=== PATIENT | female | born 1955 | race Caucasian/White ===

== ENCOUNTER 2020-02-07 11:12 | Outpatient (REF) | payer OTHER, SELFPAY ==
[2020-02-07 11:34] LABS: COVID-19 Test Negative (Negative); IDNOW Serial# 55D5AD1C
== END 2020-02-07 11:13 | disposition home or self-care (01) ==
LOC: HO.EMPCOV 11:12
PROVIDERS: PCP Internal Medicine; Visit Provider Internal Medicine
DX: Z20.828 Contact with and (suspected) exposure to other viral communicable diseases (principal)
CPT/HCPCS: 87635; C9803

== ENCOUNTER 2020-07-04 06:07 | Outpatient (REF) | payer OTHER, SELFPAY ==
[2020-07-04 07:26] LABS: MANUAL DIFF FLAG NO
[2020-07-04 07:44] LABS: Basophils Percent Auto 0.7 % (0-2); Eosinophils Absolute Auto 0.2 X10*3/uL (0.0-0.4); Eosinophils Percent Auto 4.1 % (0-4); Hematocrit 41.3 % (37-47); Hemoglobin 13.4 g/dl (12.0-16.0); Imm Gran Abs Auto 0.01 X10*3/uL (0.00-0.03); Imm Gran Pct Auto 0.2 % (0.0-0.4); Lymphocytes Absolute Auto 1.6 X10*3/uL (1.2-4.9); Lymphocytes Percent Auto 37.3 % (20-40); Mean Corpuscular HGB Conc 32.4 g/dl (31.0-35.0); Mean Corpuscular Hemoglobin 31.1 pg (27.0-33.0); Mean Corpuscular Volume 95.8 fL (80-98); Monocytes Absolute Auto 0.4 X10*3/uL (0.1-1.2); Monocytes Percent Auto 9.2 % (2-11); Neutrophils Absolute Auto 2.1 X10*3/uL (2.0-8.3); Neutrophils Percent Auto 48.5 % (45-73); Platelet Count 214 X10*3/uL (160-400); Red Blood Count 4.31 X10*6/uL (4.20-5.50); Red Cell Distribution Width 12.1 % (11.0-16.0); White Blood Count 4.4 X10*3/uL (4.8-10.8)
[2020-07-04 07:53] LABS: Alanine Aminotransferase 18 U/L (0-31); Albumin Level 4.4 g/dL (3.5-5.0); Alkaline Phosphatase 73 U/L (39-117); Anion Gap 14 (12-20); Aspartate Amino Transferase 28 U/L (5-31); Bilirubin Total 0.8 mg/dL (0.0-1.0); Blood Urea Nitrogen 17 mg/dL (9-16); Calcium 9.1 mg/dL (8.4-10.2); Carbon Dioxide 28 mmol/L (22-29); Chloride 104 mmol/L (96-108); Cholesterol 203 mg/dL; Estimated Glomerular Filt Rate > 60; Glucose Fasting 85 mg/dL (60-99); HDL Cholesterol 84 mg/dL; LDL Cholesterol Calculated 108 mg/dl; Potassium 4.6 mmol/L (3.3-5.1); Sodium 141 mmol/L (135-145); Total Protein 7.1 g/dL (6.5-8.0); Triglycerides 59 mg/dL
[2020-07-04 08:15] LABS: Free T4 (Free Thyroxine) 1.34 ng/dL (0.71-1.85); Thyroid Stimulating Hormone 0.53 uIU/mL (0.32-4.0)
== END 2020-07-04 06:08 | disposition home or self-care (01) ==
LOC: HO.LAB 06:07
PROVIDERS: PCP Internal Medicine; Visit Provider Internal Medicine
DX: Z00.00 Encounter for general adult medical examination without abnormal findings (principal); E03.9 Hypothyroidism, unspecified
CPT/HCPCS: 36415; 80053; 80061; 84439; 84443; 85025

== ENCOUNTER 2020-10-18 14:13 | Outpatient (REF) | payer OTHER, SELFPAY ==
--- NOTE | ~2020-10-18 | MM_ITS ---
EXAMINATION: MM SCREENING DIGITAL BREAST TOMOSYNTHESIS, BILATERAL CLINICAL INFORMATION: Screening. Asymptomatic. The lifetime risk of breast cancer based on the Tyrer-Cuzick Model is 25%. COMPARISON: Mammography: 08/30/2019, 06/26/2018, 06/13/2017, 05/17/2016 TECHNIQUE: Digital breast tomosynthesis is performed in both the craniocaudal and mediolateral oblique views along with computer-aided detection (CAD). Synthesized 2D images are generated from the tomosynthesis. FINDINGS: The breasts are heterogeneously dense, which may obscure small masses (ACR BI-RADS breast composition Category c). Parenchymal pattern is similar to prior exams. There is no developing density or interval mass or architectural abnormality. The axilla and skin contours are unremarkable. Again, there are tightly grouped calcifications posterior inferior medial right breast, possibly related to degenerating fibroadenoma. There are some other scattered calcifications are stable including posterior upper right breast as well as some coarse and fine vascular calcifications on each side. There are no significant changes from prior studies. MM/MM tomosynthesis screening BI IMPRESSION: No significant changes from prior studies. ASSESSMENT: BI-RADS 2: Benign RECOMMENDATION: 1. Routine annual mammography screening. 2. The lifetime risk of breast cancer based on the Tyrer-Cuzick Model is 25%. Additional annual adjunct screening with breast MRI may be of benefit in women with a risk score of 20% or greater. This patient's information was entered into a reminder system with a target due date for their next mammogram.
== END 2020-10-18 14:14 | disposition home or self-care (01) ==
LOC: HO.MAMMO 14:13
PROVIDERS: PCP Internal Medicine; Visit Provider Nurse Practitioner Adult Health
DX: Z12.31 Encounter for screening mammogram for malignant neoplasm of breast (principal)
CPT/HCPCS: 77063; 77067

== ENCOUNTER 2021-03-05 07:18 | Day surgery (SDC) | payer OTHER, SELFPAY ==
[2021-02-27 10:44] VITALS: BMI 19.0
--- NOTE | 2021-03-02 09:53 | HO.ANESPROP2 ---
Documented by User: Radha Burton NP 03/02/21 09:53 HPI - Anesthesia Eval Consult details Narrative: 65yo F for Colonoscopy [facility] Past Medical History Medical History (Updated 02/27/21 @ 10:44 by Laurie Cordova RN) COVID-19 vaccine series completed Family history of anesthesia complication Hx of thyroid cancer HX: benign breast biopsy Hypothyroid Post-operative nausea and vomiting Surgical History Surgical History (Updated 02/27/21 @ 10:44 by Laurie Cordova RN) H/O colonoscopy Hx of appendectomy Hx of right inguinal hernia repair Hx of thyroidectomy Social History Social History Are you a primary long term care phlebotomist to a significant other at home: No Do you presently have visiting nurse or other home services: No Patient Tobacco Use Status: Never used Tobacco Use of substances other than those prescribed or required for medical reasons: No Have you been hit, kicked, punched, or otherwise hurt by someone within the past year? If so, by whom?: No Are you DNR?: No Advance Directives: No Advance Directives Information Provided: Yes Advance Directives on File: No Recently lost weight without trying: No Eating poorly because of decreased appetite: No Nutrition Risks: No Nutritional Risk Poor oral hygiene: No Meds Allergies Allergy/AdvReac Type Severity Reaction Status Date / Time No Known Allergies Allergy Unverified 10/28/19 15:59 Home Medications Medication Instructions Recorded Confirmed Last Taken Type estradiol 1 appl VAGINAL 2XW 02/27/21 02/27/21 Unknown History levothyroxine 88 mcg tablet 1 tab PO DAILY 02/27/21 02/27/21 Unknown History Exam Exam Date and Time: March 02, 2021 0953 Height,Weight and Vital Signs: Height 5 ft 2 in Weight 47.174 kg Assessment and Plan Assessment Anesthesia Assessment: Chart Reviewed Documented by User: Rayshawn Valdez MD 03/05/21 07:47 [facility] Past Medical History Medical History (Updated 02/27/21 @ 10:44 by Laurie Cordova RN) COVID-19 vaccine series completed Family history of anesthesia complication Hx of thyroid cancer HX: benign breast biopsy Hypothyroid Post-operative nausea and vomiting Family History Family history of problems with anesthesia: No Surgical History Surgical History (Updated 02/27/21 @ 10:44 by Laurie Cordova RN) H/O colonoscopy Hx of appendectomy Hx of right inguinal hernia repair Hx of thyroidectomy History of Problems with Anesthesia: No Social History Social History Are you a primary long term care phlebotomist to a significant other at home: No Do you presently have visiting nurse or other home services: No Patient Tobacco Use Status: Never used Tobacco Use of substances other than those prescribed or required for medical reasons: No Have you been hit, kicked, punched, or otherwise hurt by someone within the past year? If so, by whom?: No Are you DNR?: No Advance Directives: No Advance Directives Information Provided: Yes Advance Directives on File: No Recently lost weight without trying: No Eating poorly because of decreased appetite: No Nutrition Risks: No Nutritional Risk Poor oral hygiene: No Meds Allergies Allergy/AdvReac Type Severity Reaction Status Date / Time No Known Allergies Allergy Unverified 10/28/19 15:59 Home Medications Medication Instructions Recorded Confirmed Last Taken Type estradiol 1 appl VAGINAL 2XW 02/27/21 02/27/21 Unknown History levothyroxine 88 mcg tablet 1 tab PO DAILY 02/27/21 02/27/21 Unknown History Assessment and Plan Assessment Anesthesia Assessment: Anesthesia Plan Discussed and Chart Reviewed Final Anesthetic Review Family History of Problems with Anesthesia: No History of Problems with Anesthesia: No NPO: Yes ASA Class: II Final Preanesthetic Review: No Changes in Pt Med Stat, Meds/Allgs Chart Reviewed, Consent Obtained/Reviewed and Anes Risks/Benef Reviewed Patient Risk: Low Procedure Risk: Low Anesthetic Plan Anesthetic Plan: MAC: Disposition: Standard PACU
[2021-03-05 08:09] VITALS: BP 130/68; PULSE 56; RESP 16; TEMP 36.6; O2SAT 100
[2021-03-05] MEDS: Lactated Ringers 1,000 ML 100 ML IVCONT (08:14)
--- NOTE | 2021-03-05 09:27 | PM.OP ---
Brief Operative Note Date of Service: 03/05/21 Pre-op diagnosis: Screening Post-op diagnosis: other (Colon polyps) Procedure: [id number] to the cecum and TI with bx/removal of polyps Surgeon: Omar Garber Anesthesia: MAC Was an Diesel Locomotive Firer used for this Procedure?: No Estimated blood loss (mL): 2.0 Pathology: other (A. Cecal polyp B. Transverse colon polyp C. Polyp at 30cm) Condition: stable Disposition: PACU
[2021-03-05 09:29] VITALS: BP 97/47; PULSE 62; RESP 12; TEMP 36.2; O2SAT 98
[2021-03-05 09:44] VITALS: BP 116/61; PULSE 62; RESP 18; TEMP 36.2; O2SAT 98
--- NOTE | 2021-03-05 09:58 | PC.NURSE ---
drinking gingeral nad
--- NOTE | 2021-03-05 11:46 | OP_ITS ---
SURGEON: Omar Garber MD INDICATIONS: The patient presents for evaluation of colorectal cancer screening. Full consent was obtained from her for this, including risks of bleeding and perforation. PREOPERATIVE DIAGNOSIS: Colorectal cancer screening. POSTOPERATIVE DIAGNOSIS: PROCEDURE PERFORMED: Colonoscopy to cecum and terminal ileum with biopsy and removal of polyps. ESTIMATED BLOOD LOSS: COMPLICATIONS: ANESTHESIA: Monitored anesthesia care. ASSISTANTS: SPECIMENS: POSTOPERATIVE DIAGNOSES: Colorectal cancer screening, small colon polyps, mild diverticulosis, small internal hemorrhoids. DESCRIPTION OF PROCEDURE: The patient was placed in the left lateral decubitus position. The digital rectal exam revealed no abnormalities. The Olympus video pediatric colonoscope was entered into the rectum and advanced easily to the cecum. Once in the cecum, I did identify normal-appearing cecal pouch with appendiceal orifice, other than an approximately 3 or 4 mm polyp, which was biopsied and completely removed with cold biopsy forceps. The terminal ileum was cannulated and appeared normal. The scope was withdrawn back in the colon. The remainder of the cecum appeared normal. The scope was slowly withdrawn assessing all mucosal surfaces carefully. Preparation was excellent. In the transverse colon and at 30 cm, were flat approximately 3 or 4 mm polyps, which were each biopsied and completely removed with cold biopsy forceps. I did not visualize any other polyps, colitis, nor angiodysplasia. There was a mild amount of sigmoid diverticulosis. In the rectum, scope was retroflexed visualizing small internal hemorrhoids, but no other pathology. The rectal mucosa appeared normal. The scope was straightened and withdrawn from the patient. She tolerated the procedure well and was returned to recovery area in stable condition. IMPRESSION: 1. Small colon polyps, status post biopsy and removal. 2. Mild diverticulosis. 3. Small internal hemorrhoids. PLAN: The results of biopsies will be checked. If any of these are tubular adenoma, I would recommend a followup colonoscopy in 5 years. If they are all hyperplastic, I would recommend a followup colonoscopy in 10 years. She will otherwise see me on a p.r.n. basis. MD ADILENE Martins/ABBY / [phone]
== END 2021-03-05 10:22 | disposition home or self-care (01) ==
PROVIDERS: PCP Internal Medicine; Visit Provider Internal Medicine
PROC: 0DJD8ZZ Inspection of Lower Intestinal Tract, Via Natural or Artificial Opening Endoscopic (ICD-10-PCS; CPT 45378; principal; 2021-03-05 08:20)
DX: Z12.11 Encounter for screening for malignant neoplasm of colon (principal); D12.0 Benign neoplasm of cecum; D12.3 Benign neoplasm of transverse colon; K63.5 Polyp of colon; K57.30 Diverticulosis of large intestine without perforation or abscess without bleeding; K64.8 Other hemorrhoids; E89.0 Postprocedural hypothyroidism; Z85.850 Personal history of malignant neoplasm of thyroid; Z79.899 Other long term (current) drug therapy
CPT/HCPCS: 45380; 88305

== ENCOUNTER 2021-06-11 06:37 | Outpatient (REF) | payer OTHER, SELFPAY ==
[2021-06-11 06:59] LABS: MANUAL DIFF FLAG NO
[2021-06-11 07:37] LABS: Basophils Percent Auto 0.7 % (0-2); Eosinophils Absolute Auto 0.1 X10*3/uL (0.0-0.4); Eosinophils Percent Auto 2.9 % (0-4); Hematocrit 40.9 % (37.0-47.0); Hemoglobin 13.4 g/dl (12.0-16.0); Imm Gran Abs Auto 0.01 X10*3/uL (0.00-0.03); Imm Gran Pct Auto 0.2 % (0.0-0.4); Lymphocytes Absolute Auto 1.5 X10*3/uL (1.2-4.9); Lymphocytes Percent Auto 36.7 % (20-40); Mean Corpuscular HGB Conc 32.8 g/dl (31.0-35.0); Mean Corpuscular Hemoglobin 31.1 pg (27.0-33.0); Mean Corpuscular Volume 94.9 fL (80.0-98.0); Mean Platelet Volume 10.7 fL (9.4-12.3); Monocytes Absolute Auto 0.4 X10*3/uL (0.1-1.2); Monocytes Percent Auto 9.8 % (2-11); Neutrophils Absolute Auto 2.1 x10*3/uL (2.0-8.3); Neutrophils Percent Auto 49.7 % (45-73); Platelet Count 201 X10*3/uL (160-400); Red Blood Count 4.31 X10*6/uL (4.20-5.50); Red Cell Distribution Width 12.3 % (11.0-16.0); White Blood Count 4.2 X10*3/uL (4.8-10.8)
[2021-06-11 08:33] LABS: Free T4 (Free Thyroxine) 1.29 ng/dL (0.71-1.85); Thyroid Stimulating Hormone 0.54 uIU/mL (0.32-4.0); Vitamin D 25-OH Total 29.9 ng/mL (>30)
[2021-06-12 12:12] LABS: Alanine Aminotransferase 18 U/L (0-31); Albumin Level 4.2 g/dL (3.5-5.0); Alkaline Phosphatase 72 U/L (39-117); Anion Gap 14 (12-20); Aspartate Amino Transferase 27 U/L (5-31); Bilirubin Total 0.7 mg/dL (0.0-1.0); Blood Urea Nitrogen 11 mg/dL (9-16); Calcium 9.2 mg/dL (8.4-10.2); Carbon Dioxide 28 mmol/L (22-29); Chloride 103 mmol/L (96-108); Cholesterol 228 mg/dL; Estimated Glomerular Filt Rate > 60; Glucose Fasting 91 mg/dL (60-99); HDL Cholesterol 89 mg/dL; LDL Cholesterol Calculated 128 mg/dl; Potassium 4.7 mmol/L (3.3-5.1); Sodium 140 mmol/L (135-145); Total Protein 6.9 g/dL (6.5-8.0); Triglycerides 56 mg/dL
[2021-06-15 14:11] LABS: SARS COV2 IgG NEGATIVE
== END 2021-06-11 06:38 | disposition home or self-care (01) ==
LOC: HO.LAB 06:37
PROVIDERS: PCP Internal Medicine; Visit Provider Internal Medicine
DX: E03.9 Hypothyroidism, unspecified (principal); E78.00 Pure hypercholesterolemia, unspecified; M85.80 Other specified disorders of bone density and structure, unspecified site; Z20.822 Contact with and (suspected) exposure to COVID-19
CPT/HCPCS: 36415; 80053; 80061; 82306; 84439; 84443; 85025; 86769

== ENCOUNTER 2021-09-11 07:54 | Outpatient (REF) | payer OTHER, SELFPAY ==
[2021-09-11 09:07] LABS: Cholesterol 211 mg/dL; HDL Cholesterol 73 mg/dL; LDL Cholesterol Calculated 123 mg/dl; Triglycerides 77 mg/dL
== END 2021-09-11 07:55 | disposition home or self-care (01) ==
LOC: HO.LAB 07:54
PROVIDERS: PCP Internal Medicine; Visit Provider Internal Medicine
DX: E78.00 Pure hypercholesterolemia, unspecified (principal)
CPT/HCPCS: 36415; 80061

== ENCOUNTER 2021-10-24 07:14 | Outpatient (REF) | payer OTHER, SELFPAY ==
--- NOTE | ~2021-10-24 | MM_ITS ---
EXAMINATION: MM SCREENING DIGITAL BREAST TOMOSYNTHESIS, BILATERAL CLINICAL INFORMATION: Screening. Asymptomatic. The lifetime risk of breast cancer based on the Tyrer-Cuzick Model is 25%. COMPARISON: Mammography: 10/18/2020, 08/30/2019, 06/26/2018, 06/13/2017 TECHNIQUE: Digital breast tomosynthesis is performed in both the craniocaudal and mediolateral oblique views along with computer-aided detection (CAD). Synthesized 2D images are generated from the tomosynthesis. FINDINGS: The breasts are heterogeneously dense, which may obscure small masses (ACR BI-RADS breast composition Category c). Parenchymal pattern is similar to prior studies and there is no interval mass or developing density or architectural abnormality. Chronic stable grouped calcifications posterior inferior medial right breast are stable, likely degenerating fibroadenoma. Other previously noted scattered fine and vascular calcifications are also stable. The axilla and skin contours are unremarkable. There are no significant changes. MM/MM tomosynthesis screening BI IMPRESSION: No mammographic evidence of malignancy. ASSESSMENT: BI-RADS 2: Benign RECOMMENDATION: Routine annual mammography screening. This patient's information was entered into a reminder system with a target due date for their next mammogram.
== END 2021-10-24 07:15 | disposition home or self-care (01) ==
LOC: HO.MAMMO 07:14
PROVIDERS: PCP Internal Medicine; Visit Provider Internal Medicine
DX: Z12.31 Encounter for screening mammogram for malignant neoplasm of breast (principal)
CPT/HCPCS: 77063; 77067

== ENCOUNTER 2022-06-14 06:08 | Outpatient (REF) | payer OTHER, SELFPAY ==
[2022-06-14 06:20] LABS: MANUAL DIFF FLAG NO
[2022-06-14 07:26] LABS: Basophils Percent Auto 0.5 % (0-2); Eosinophils Absolute Auto 0.1 X10*3/uL (0.0-0.4); Eosinophils Percent Auto 2.2 % (0-4); Hematocrit 40.3 % (37.0-47.0); Hemoglobin 13.4 g/dl (12.0-16.0); Imm Gran Abs Auto 0.02 X10*3/uL (0.00-0.03); Imm Gran Pct Auto 0.3 % (0.0-0.4); Lymphocytes Absolute Auto 1.8 X10*3/uL (1.2-4.9); Lymphocytes Percent Auto 31.6 % (20-40); Mean Corpuscular HGB Conc 33.3 g/dl (31.0-35.0); Mean Corpuscular Hemoglobin 31.7 pg (27.0-33.0); Mean Corpuscular Volume 95.3 fL (80.0-98.0); Mean Platelet Volume 10.8 fL (9.4-12.3); Monocytes Absolute Auto 0.5 X10*3/uL (0.1-1.2); Monocytes Percent Auto 8.6 % (2-11); Neutrophils Absolute Auto 3.3 x10*3/uL (2.0-8.3); Neutrophils Percent Auto 56.8 % (45-73); Platelet Count 215 X10*3/uL (160-400); Red Blood Count 4.23 X10*6/uL (4.20-5.50); Red Cell Distribution Width 12.4 % (11.0-16.0); White Blood Count 5.8 X10*3/uL (4.8-10.8)
[2022-06-14 07:56] LABS: Alanine Aminotransferase 18 U/L (0-31); Albumin Level 4.2 g/dL (3.5-5.0); Alkaline Phosphatase 70 U/L (39-117); Anion Gap 11 (12-20); Aspartate Amino Transferase 23 U/L (5-31); Bilirubin Total 0.7 mg/dL (0.0-1.0); Blood Urea Nitrogen 18 mg/dL (9-16); Carbon Dioxide 30 mmol/L (22-29); Chloride 105 mmol/L (96-108); Cholesterol 232 mg/dL; Estimated Glomerular Filt Rate > 60; Glucose Fasting 92 mg/dL (60-99); HDL Cholesterol 77 mg/dL; LDL Cholesterol Calculated 142 mg/dl; Potassium 4.3 mmol/L (3.3-5.1); Sodium 142 mmol/L (135-145); Total Protein 6.8 g/dL (6.5-8.0); Triglycerides 69 mg/dL
[2022-06-14 08:14] LABS: Thyroid Stimulating Hormone 0.37 uIU/mL (0.32-4.0); Vitamin D 25-OH Total 37.2 ng/mL (>30)
== END 2022-06-14 06:09 | disposition home or self-care (01) ==
LOC: HO.LAB 06:08
PROVIDERS: PCP Internal Medicine; Visit Provider Internal Medicine
DX: Z00.00 Encounter for general adult medical examination without abnormal findings (principal); E78.00 Pure hypercholesterolemia, unspecified; E03.9 Hypothyroidism, unspecified
CPT/HCPCS: 36415; 80053; 80061; 82306; 84439; 84443; 85025

== ENCOUNTER 2022-10-30 07:24 | Outpatient (REF) | payer MEDICARE, OTHER, SELFPAY ==
--- NOTE | ~2022-10-30 | MM_ITS ---
EXAMINATION: BONE DENSITOMETRY CLINICAL INDICATION: Osteopenia. COMPARISON: Previous BD dated 06/26/2018 and baseline BD dated 05/10/2008. TECHNIQUE: Using a [employer] DXA System (software version: 13.1) manufactured by [employer], dual-energy x-ray absorptiometry was performed of the lumbar spine and left hip. The images are of good technical quality. Summary results are attached. FINDINGS: LEFT FEMUR, NECK: Current: BMD 0.539 g/cm2, Z-score -1.8, T-score -3.6, osteoporosis. Prior: BMD 0.717 g/cm2. Baseline: BMD 0.845 g/cm2. LEFT FEMUR, TOTAL: Current: BMD 0.548 g/cm2, Z-score -2.0, T-score -3.6, osteoporosis, 29.2% decrease from previous, 37.0% decrease from baseline (<5% change is not significant). Prior: BMD 0.774 g/cm2. Baseline: BMD 0.870 g/cm2. AP SPINE L1-L4: Current: BMD 0.819 g/cm2, Z-score -0.8, T-score -3.0, osteoporosis, 12.7% decrease from previous, 21.8% decrease from baseline (<5% change is not significant). Prior: BMD 0.938 g/cm2. Baseline: BMD 1.047 g/cm2. IDENTIFIED RISK FACTORS: Menopause. HISTORY OF FRACTURE: None listed. MEDICATIONS: Vitamin D, ERT/SERMS. MM/XR DEXA axial skeleton IMPRESSION: 1. DIAGNOSIS: Osteoporosis based on the lowest T-score value of -3.6 in the femoral neck and total femur applying World Health Organization criteria. 2. 10-YEAR FRACTURE RISK PREDICTION, FRAX: According to the guidelines, FRAX calculation should only be performed on patients in the osteopenia bone density category. Therefore, FRAX was not performed on this patient. 3. Treatment Recommendations: NOF guidelines recommend consideration for treatment in postmenopausal women and men age 50 and older presenting with the following: -A hip or vertebral (clinical or morphometric) fracture. -T-score less than or equal to -2.5 at the femoral neck or spine after appropriate evaluation to exclude secondary causes. -Low bone mass at the hip or spine and a 10-year fracture probability by FRAX of greater than or equal to 3% for hip fracture or greater than or equal to 20% for major osteoporotic fracture based on the [place] adapted WHO algorithm. 4. Other Recommendations: All treatment decisions require clinical judgment and consideration of individual patient factors, including patient preferences, comorbidities, previous drug use, risk factors not captured in the FRAX model (e.g. frailty, falls, vitamin D deficiency, increased bone turnover, interval significant decline in bone density) and possible under or overestimation of fracture risk by FRAX. Additional medical evaluation for secondary cause of low bone mineral density may be appropriate. FUTURE SCAN RECOMMENDATION: People with diagnosed cases of osteoporosis or at high risk for fracture should have regular bone mineral density tests. For patients eligible for Medicare, routine testing is allowed once every 2 years. The testing frequency can be increased to one year for patients who have rapidly progressing disease, those who are receiving or discontinuing medical therapy to restore bone mass, or have additional risk factors.
== END 2022-10-30 07:25 | disposition home or self-care (01) ==
LOC: HO.MAMMO 07:24
PROVIDERS: PCP Internal Medicine; Visit Provider Internal Medicine
DX: Z12.31 Encounter for screening mammogram for malignant neoplasm of breast (principal); Z13.820 Encounter for screening for osteoporosis; Z78.0 Asymptomatic menopausal state
CPT/HCPCS: 77063; 77067; 77080

== ENCOUNTER → 2022-10-30 08:15 | Outpatient (BNV) | payer MEDICARE, OTHER, SELFPAY | PROVIDERS: PCP Internal Medicine; Visit Provider Radiology Diagnostic Radiology | DX: Z12.31 Encounter for screening mammogram for malignant neoplasm of breast (principal) | CPT/HCPCS: 77063; 77067; 77080 ==

== ENCOUNTER 2023-06-20 06:13 | Outpatient (REF) | payer MEDICARE, OTHER, SELFPAY ==
[2023-06-20 06:33] LABS: MANUAL DIFF FLAG NO
[2023-06-20 07:48] LABS: Basophils Percent Auto 0.8 % (0-2); Eosinophils Absolute Auto 0.1 X10*3/uL (0.0-0.4); Eosinophils Percent Auto 2.7 % (0-4); Hematocrit 42.7 % (37.0-47.0); Hemoglobin 13.9 g/dl (12.0-16.0); Imm Gran Abs Auto 0.01 X10*3/uL (0.00-0.03); Imm Gran Pct Auto 0.2 % (0.0-0.4); Lymphocytes Absolute Auto 1.8 X10*3/uL (1.2-4.9); Lymphocytes Percent Auto 36.7 % (20-40); Mean Corpuscular HGB Conc 32.6 g/dl (31.0-35.0); Mean Corpuscular Volume 95.1 fL (80.0-98.0); Mean Platelet Volume 10.9 fL (9.4-12.3); Monocytes Absolute Auto 0.4 X10*3/uL (0.1-1.2); Monocytes Percent Auto 8.7 % (2-11); Neutrophils Absolute Auto 2.5 x10*3/uL (2.0-8.3); Neutrophils Percent Auto 50.9 % (45-73); Platelet Count 217 X10*3/uL (160-400); Red Blood Count 4.49 X10*6/uL (4.20-5.50); Red Cell Distribution Width 12.4 % (11.0-16.0); White Blood Count 4.9 X10*3/uL (4.8-10.8)
[2023-06-20 08:19] LABS: Alanine Aminotransferase 20 U/L (0-31); Albumin Level 4.3 g/dL (3.5-5.0); Alkaline Phosphatase 69 U/L (39-117); Anion Gap 17 (12-20); Aspartate Amino Transferase 27 U/L (5-31); Bilirubin Total 0.5 mg/dL (0.0-1.0); Blood Urea Nitrogen 13 mg/dL (9-16); Calcium 9.5 mg/dL (8.4-10.2); Carbon Dioxide 29 mmol/L (22-29); Chloride 103 mmol/L (96-108); Cholesterol 213 mg/dL (<200); Estimated Glomerular Filt Rate > 60; Glucose Fasting 88 mg/dL (60-99); HDL Cholesterol 82 mg/dL (>40); LDL Cholesterol Calculated 118 mg/dL (<100); Potassium 4.5 mmol/L (3.3-5.1); Sodium 144 mmol/L (135-145); Total Protein 7.8 g/dL (6.5-8.0); Triglycerides 67 mg/dL (<150)
[2023-06-20 08:37] LABS: Hepatitis A Antibody IgG REACTIVE (Nonreactive); ~Hepatitis A Antibody IgG 14.11 S/CO (0.00-0.99)
[2023-06-20 08:39] LABS: Free T4 (Free Thyroxine) 1.41 ng/dL (0.71-1.85); Thyroid Stimulating Hormone 0.46 uIU/mL (0.32-4.0); Vitamin D 25-OH Total 42.8 ng/mL (>30)
== END 2023-06-20 06:14 | disposition home or self-care (01) ==
LOC: HO.LAB 06:13
PROVIDERS: PCP Internal Medicine; Visit Provider Internal Medicine
DX: E03.9 Hypothyroidism, unspecified (principal); E78.00 Pure hypercholesterolemia, unspecified; M81.0 Age-related osteoporosis without current pathological fracture
CPT/HCPCS: 36415; 80053; 80061; 82306; 84439; 84443; 85025; 86708

== ENCOUNTER 2023-10-03 10:48 | Outpatient (REF) | payer MEDICARE, OTHER, SELFPAY | END 2023-10-03 10:49 | disposition home or self-care (01) | LOC: HO.HOSX 10:48 | PROVIDERS: Visit Provider Orthopaedic Surgery | DX: M25.511 Pain in right shoulder (principal); M25.811 Other specified joint disorders, right shoulder | CPT/HCPCS: 99202 ==

== ENCOUNTER 2023-10-03 13:05 | Outpatient (AMB) | payer MEDICARE, OTHER, SELFPAY ==
--- NOTE | 2023-10-03 13:06 | A.OFFVIS_ITS ---
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 She denies any weakness. She has had similar pains in both of her shoulders in the past. She was treated by Dr. Maradiaga several years ago. She has not had surgery. She has had physical therapy in the past which gave her fairly good relief. Allergies No Known Allergies Allergy (Verified 10/03/23 13:07) Medication List - Last Reconciled 10/05/23 by Wilfredo Forrest MD estradiol 0.01%(0.1mg/gram) 1 appl vaginal 2XW levothyroxine 1 tab PO DAILY PFSH Medical History (Updated 10/03/23 @ 13:31 by Wilfredo Forrest MD) COVID-19 vaccine series completed Family history of anesthesia complication Post-operative nausea and vomiting Hx of thyroid cancer HX: benign breast biopsy Hypothyroid Surgical History Hx of right inguinal hernia repair Hx of appendectomy Hx of thyroidectomy H/O colonoscopy Social History Are you a primary health care recruiter to a significant other at home: No Do you presently have visiting nurse or other home services: No Patient Tobacco Use Status: Never used Tobacco Physical Exam Vital Signs: BMI result Body Mass Index 19.8 Const Other: Well-nourished well-developed very friendly female awake alert and oriented x3 in no acute distress Extrem Other: Bilateral upper extremity examination shows good capillary refill, no skin lesions noted, normal sensation light touch Right shoulder examination shows full range of motion when compared to her left shoulder, 4+ out of 5 strength with supraspinatus testing, positive impingement signs, no instability Assessment & Plan Assessment & Plan (1) Impingement of right shoulder: Code(s): M25.811 - Other specified joint disorders, right shoulder Category: Medical Plan Dr. Busch presents with right shoulder pain due to impingement syndrome. I had a lengthy discussion patient regarding the treatment options. We will hold off on a cortisone injection for now. I did give her a prescription to go to formal physical therapy. She will follow up with me on an as-needed basis should her symptoms not plateau at an unacceptable level over the next few months. Feel free to call me at any time should questions regarding her orthopedic management arise. I spent 20 minutes in reviewing the patient's records, seeing the patient and documenting in the medical record. Orders: Orders XR shoulder RT min 2V 10/03/23 M25.511 - Pain in right shoulder PT Evaluation and Treatment 10/03/23 M25.811 - Other specified joint disorders, right shoulder Coding Level of Care Code New Pt Level 3 (14552) Diagnoses Impingement of right shoulder M25.811
[2023-10-03 13:18] VITALS: BMI 19.8
== END 2023-10-03 13:28 | disposition home or self-care (01) ==
PROVIDERS: PCP Internal Medicine; Visit Provider Orthopaedic Surgery
DX: M25.811 Other specified joint disorders, right shoulder (principal)
CPT/HCPCS: 99203

== ENCOUNTER 2023-11-05 07:21 | Outpatient (REF) | payer MEDICARE, OTHER, SELFPAY ==
--- NOTE | ~2023-11-05 | MM_ITS ---
EXAMINATION: MM SCREENING DIGITAL BREAST TOMOSYNTHESIS, BILATERAL CLINICAL INFORMATION: Screening. Asymptomatic. COMPARISON: Mammography: Comparison is made with available priors TECHNIQUE: Digital breast mammography with tomosynthesis is performed in both the craniocaudal and mediolateral oblique views along with computer-aided detection (CAD). FINDINGS: The breasts are extremely dense, which lowers the sensitivity of mammography (ACR BI-RADS breast composition Category d). Bilateral postsurgical changes are stable. Calcifications in the lower inner right breast posterior depth stable dating back to 2018. There are no significant masses, abnormal calcifications, or other abnormalities. MM/MM tomosynthesis screening BI IMPRESSION: No mammographic evidence of malignancy. ASSESSMENT: BI-RADS BI-RADS 2 - Benign Findings RECOMMENDATION: Routine annual mammography screening. 1 year F/U This examination should not preclude the clinical evaluation of a suspicious palpable abnormality. This patient's information was entered into a reminder system with a target due date for their next mammogram. Electronically signed by: Shaneka Smith DO 11/07/2023 08:55 AM EDT
== END 2023-11-05 07:22 | disposition home or self-care (01) ==
LOC: HO.MAMMO 07:21
PROVIDERS: PCP Internal Medicine; Visit Provider Internal Medicine
DX: Z12.31 Encounter for screening mammogram for malignant neoplasm of breast (principal)
CPT/HCPCS: 77063; 77067

== ENCOUNTER → 2023-11-05 07:30 | Outpatient (BNV) | payer MEDICARE, OTHER, SELFPAY | PROVIDERS: PCP Internal Medicine; Visit Provider Internal Medicine | DX: Z12.31 Encounter for screening mammogram for malignant neoplasm of breast (principal) | CPT/HCPCS: 77063; 77067 ==

== ENCOUNTER 2023-12-04 17:00 | Outpatient (RCR) | payer MEDICARE, OTHER, SELFPAY ==
--- NOTE | 2023-11-03 15:28 | MHC.PT.EP ---
[facility] [place] Office [place] Office [place] Office [address] Mazin Diamond [address] [phone] F: [phone] F: [phone] F: [phone] F: [phone] Physical Therapy Plan of Care Date of Evaluation: 11/03/23 Date of Surgery: Diagnosis: Other specified joint disorders, right shoulder Assessment: Pt is a pleasant and motivated 68yo F who presents to PT with right shoulder pain. Pt presents to PT with current impairments in pain, decreased right shoulder ROM, decreased UE strength, soft tissue restrictions, and impaired posture. She is limited functionally by lifting, reaching, overhead ADLs, reaching behind head, and reaching behind back. She is an excellent candidate for skilled PT in order to address current impairments to facilitate return to PLOF. She is recommended to be seen 2x/week for 4 weeks and will be reassessed at that time Frequency and Duration: The patient will be seen 2x/week for 4 weeks Short Term Goals: Pt will be I with HEP to promote self management of symptoms Pt will improve right shoulder flexion by at least 10 degrees Hydro Pneumatic Tester Goals: Pt will achieve full ROM and strength all planes of right shoulder to assist with lifting and reaching Pt will perform overhead ADLs with minimal to no compensation Pt will return to gym routine including upper body exercises with proper form and minimal to no pain Treatment Plan: Modalities to reduce pain, spasms and effusion. Manual therapy to restore motion and function. Therapeutic exercise to improve strength and flexibility. Neuromuscular re-education for posture and balance. Therapeutic activities to return to functional activities of daily living. Electronically signed by: Ca Wills, PT, DPT Please sign and return to therapist. Thank you for your referral.
--- NOTE | 2023-12-05 13:35 | MHC.PT.DC ---
[facility] [place] Office [place] Office [place] Office [address] Mazin Diamond [address] [phone] F: [phone] F: [phone] F: [phone] F: [phone] Physical Therapy Discharge Report Diagnosis: Other specified joint disorders, right shoulder Date of Surgery: Date of Evaluation: 11/03/23 Date of Discharge: 12/05/23 Treatments to Date: 8 Cancellations to Date: No Shows to Date: Discharge Status: Improved Function Independent with HEP Discharge Summary: Pt has made good progress since SOC. She has made improvements in ROM and strength. She has demonstrated improvements in postural awareness. She does continue to have difficulty reaching behind her back and taking off a shirt. She is independent with HEP. She is being D/C to HEP at this time. I provided her with printed, updated copy of HEP. She is recommended to perform HEP consistently for a few weeks and follow up with doctor if symptoms persist. Pt is in agreement with this plan and reports no further questions or concerns for PT at D/C Electronically signed by: Ca Wills, PT, DPT Please sign and return to therapist. Thank you for your referral.
== END 2023-12-05 13:33 | disposition home or self-care (01) ==
LOC: HO.PT 17:00
PROVIDERS: PCP Internal Medicine; Visit Provider Orthopaedic Surgery
DX: M25.811 Other specified joint disorders, right shoulder (principal)
CPT/HCPCS: 97110; 97140; 97161

== ENCOUNTER 2024-01-14 08:22 | Day surgery (SDC) | payer MEDICARE, OTHER, SELFPAY ==
[2024-01-12 14:40] VITALS: BMI 19.2
[2024-01-14 09:05] VITALS: BP 133/57; PULSE 63; RESP 16; TEMP 36.9; O2SAT 100
[2024-01-14] MEDS: Lactated Ringers 1,000 ML 100 ML IVCONT (09:12)
--- NOTE | 2024-01-14 09:40 | P.CONAN_ITS ---
Documented by User: Radha Burton NP 01/13/24 12:00 HPI - Anesthesia Eval Consult details Narrative: 68yo F for Colonoscopy PMFSH Active Problems Active Problems: All Active Problems Impingement of right shoulder (Acute) Right shoulder pain (Acute) Past Medical History Medical History (Updated 01/12/24 @ 14:38 by Laurie Cordova RN) Family history of anesthesia complication Post-operative nausea and vomiting Hx of thyroid cancer HX: benign breast biopsy Hypothyroid Family History Family history of problems with anesthesia: No Surgical History Surgical History (Updated 01/12/24 @ 14:40 by Laurie Cordova RN) Hx of right inguinal hernia repair Hx of appendectomy Hx of thyroidectomy H/O colonoscopy History of Problems with Anesthesia: No Social History Social History Are you a primary career services representative to a significant other at home: No Do you presently have visiting nurse or other home services: No Patient Tobacco Use Status: Never used Tobacco Second Hand Smoke Exposure: No Use of substances other than those prescribed or required for medical reasons: No Have you been hit, kicked, punched, or otherwise hurt by someone within the past year? If so, by whom?: No Are you DNR?: No Advance Directives: No Advance Directives Information Provided: Yes Advance Directives on File: No Recently lost weight without trying: No Eating poorly because of decreased appetite: No Nutrition Risks: No Nutritional Risk Patient : No : No Poor oral hygiene: No Meds Allergies Allergy/AdvReac Type Severity Reaction Status Date / Time No Known Allergies Allergy Verified 10/03/23 13:07 Home Medications ?Medication ?Instructions ?Recorded ?Confirmed ?Last Taken ?Type estradiol 0.01% (0.1 mg/gram) 1 appl vaginal 2XW 02/27/21 01/12/24 Unknown History vaginal cream levothyroxine 88 mcg tablet 1 tab PO DAILY 02/27/21 01/12/24 01/14/24 History Exam Height,Weight and Vital Signs: Height 5 ft 2 in Weight 47.627 kg Assessment and Plan Assessment Anesthesia Assessment: Chart Reviewed Final Anesthetic Review Family History of Problems with Anesthesia: No History of Problems with Anesthesia: No Documented by User: Latoya Buchanan, 01/14/24 10:05 [facility] Past Medical History Medical History (Updated 01/12/24 @ 14:38 by Laurie Cordova RN) Family history of anesthesia complication Post-operative nausea and vomiting Hx of thyroid cancer HX: benign breast biopsy Hypothyroid Family History Family history of problems with anesthesia: No Surgical History Surgical History (Updated 01/12/24 @ 14:40 by Laurie Cordova RN) Hx of right inguinal hernia repair Hx of appendectomy Hx of thyroidectomy H/O colonoscopy History of Problems with Anesthesia: Yes (PONV) Social History Social History Are you a primary career services representative to a significant other at home: No Do you presently have visiting nurse or other home services: No Patient Tobacco Use Status: Never used Tobacco Second Hand Smoke Exposure: No Use of substances other than those prescribed or required for medical reasons: No Have you been hit, kicked, punched, or otherwise hurt by someone within the past year? If so, by whom?: No Are you DNR?: No Advance Directives: No Advance Directives Information Provided: Yes Advance Directives on File: No Recently lost weight without trying: No Eating poorly because of decreased appetite: No Nutrition Risks: No Nutritional Risk Patient : No : No Poor oral hygiene: No Meds Allergies Allergy/AdvReac Type Severity Reaction Status Date / Time No Known Allergies Allergy Verified 10/03/23 13:07 Home Medications ?Medication ?Instructions ?Recorded ?Confirmed ?Last Taken ?Type estradiol 0.01% (0.1 mg/gram) 1 appl vaginal 2XW 02/27/21 01/12/24 Unknown History vaginal cream levothyroxine 88 mcg tablet 1 tab PO DAILY 02/27/21 01/12/24 01/14/24 History Exam Exam Date and Time: 01/14/24 0940 Height,Weight and Vital Signs: Height 5 ft 2 in Weight 47.627 kg Vital Signs Temperature 98.5 F 01/14/24 09:05 Pulse Rate 63 01/14/24 09:05 Respiratory Rate 16 01/14/24 09:05 Blood Pressure 133/57 L 01/14/24 09:05 Pulse Oximetry 100 01/14/24 09:05 Oxygen Delivery Method Room Air 01/14/24 09:05 Temperature 98.5 F 01/14/24 09:05 Pulse Rate 63 01/14/24 09:05 Respiratory Rate 16 01/14/24 09:05 Blood Pressure 133/57 L 01/14/24 09:05 Pulse Oximetry 100 01/14/24 09:05 Oxygen Delivery Method Room Air 01/14/24 09:05 Airway Mallampati Class: I TM Dist: >3cm Neck ROM: Full Loose/Missing/Broken Teeth: Yes (chipped #24) Heart: S1S2 Lungs: CTAB Assessment and Plan Assessment Anesthesia Assessment: Anesthesia Plan Discussed and Chart Reviewed Final Anesthetic Review Family History of Problems with Anesthesia: No History of Problems with Anesthesia: Yes (PONV) NPO: Yes ASA Class: II Final Preanesthetic Review: No Changes in Pt Med Stat, Meds/Allgs Chart Reviewed, Consent Obtained/Reviewed and Anes Risks/Benef Reviewed Patient Risk: Low Procedure Risk: Low Anesthetic Plan Anesthetic Plan: MAC: and Agree w/ Assess. and Plan Disposition: Standard PACU
[2024-01-14 10:42] VITALS: BP 84/37; PULSE 59; RESP 16; TEMP 36.2; O2SAT 98
--- NOTE | 2024-01-14 10:47 | P.BOP_ITS ---
Brief Operative Note Date of Service: 01/14/24 Pre-op diagnosis: Screening Post-op diagnosis: other (Colon polyps) Procedure: Colonoscopy to the cecum and TI with bx/removal of polyps Surgeon: Omar Garber MD Anesthesia: MAC Was an Cake Icer And Packer used for this Procedure?: No Estimated blood loss (mL): 2.0 Pathology: other (A. Polyps at 30cm) Condition: stable Disposition: PACU
[2024-01-14 10:58] VITALS: BP 103/52; PULSE 52; RESP 16; TEMP 36.2; O2SAT 98
--- NOTE | 2024-01-14 11:18 | OP_ITS ---
DATE OF SERVICE: 01/14/2024 SURGEON: Omar Garber MD INDICATIONS: The patient presents for evaluation of colorectal cancer screening and personal history of colon polyps. Full consent has been obtained from her for this, including risks of bleeding and perforation. PREOPERATIVE DIAGNOSIS: POSTOPERATIVE DIAGNOSIS: PROCEDURE PERFORMED: Colonoscopy to the cecum and terminal ileum with biopsy and removal of polyps. ESTIMATED BLOOD LOSS: COMPLICATIONS: ANESTHESIA: Monitored anesthesia care. ASSISTANTS: SPECIMENS: PREOPERATIVE DIAGNOSES: Colorectal cancer screening and personal history of colon polyps. POSTOPERATIVE DIAGNOSES: Colorectal cancer screening, personal history of colon polyps, small colon polyps, mild sigmoid diverticulosis, small internal hemorrhoids. DESCRIPTION OF PROCEDURE: The patient was placed in the left lateral decubitus position. The digital rectal exam revealed no abnormalities. The Olympus video pediatric colonoscope was then entered into the rectum and advanced easily to the cecum. Once in the cecum, I did identify normal-appearing cecal pouch with appendiceal orifice and a normal-appearing ileocecal valve. The terminal ileum was cannulated and appeared normal. Scope was withdrawn back in the colon. The entire cecum and ileocecal valve appeared normal. The scope was slowly withdrawn assessing all mucosal surfaces carefully. Preparation was excellent. At 30 cm, were 3 less than 5 mm probable hyperplastic polyps, which were all biopsied and removed with cold biopsy forceps and placed in the same container. I did not visualize any other polyps, colitis, nor angiodysplasias. There was a mild amount of sigmoid diverticulosis. In the rectum, scope was retroflexed, visualizing some internal hemorrhoids, but no other pathology. The rectal mucosa appeared normal. Scope was straightened and withdrawn from the patient. She tolerated the procedure well and was returned to the recovery area in stable condition. IMPRESSION: 1. Small colon polyps. 2. Mild diverticulosis. 3. Small internal hemorrhoids. PLAN: The results of the biopsies will be checked. Given her previous history of serrated polyps, I would recommend a repeat colonoscopy in 3 years for further surveillance. She will, otherwise, see me on a p.r.n. basis. MD ADILENE Martins/ABBY / [phone]
== END 2024-01-14 11:41 | disposition home or self-care (01) ==
PROVIDERS: PCP Internal Medicine; Visit Provider Internal Medicine
PROC: 0DJD8ZZ Inspection of Lower Intestinal Tract, Via Natural or Artificial Opening Endoscopic (ICD-10-PCS; CPT 45378; principal; 2024-01-14 09:30)
DX: Z12.11 Encounter for screening for malignant neoplasm of colon (principal); Z86.0101 Personal history of adenomatous and serrated colon polyps; D12.5 Benign neoplasm of sigmoid colon; K57.30 Diverticulosis of large intestine without perforation or abscess without bleeding; K64.8 Other hemorrhoids; Z85.850 Personal history of malignant neoplasm of thyroid; M81.0 Age-related osteoporosis without current pathological fracture; Z79.899 Other long term (current) drug therapy; Z98.890 Other specified postprocedural states
CPT/HCPCS: 45380; 88305; J2003; J2704

== ENCOUNTER 2024-07-07 10:58 | Outpatient (AMB) | payer MEDICARE, OTHER, SELFPAY ==
--- NOTE | 2024-07-07 11:04 | MHC.PC.OV ---
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 Hypothyroidism- Following with endocrinology. Reports last TSH was 0.52. On levothyroxine 88mcg daily. Osteoporosis- Following with endocrinology. Most recent DEXA not available for review, will request records from endo. Started on fosamax 35mg weekly. Tolerating well. No bone pain, gi upset. On vitamin D and estradiol as well. Hyperlipidemia- last total chol 213, LDL 118, HDL 82. not on statin Reporting bilateral hearing loss that has been ongoing. No other concerns at today's visit. Last mammo- 10/2023 no evidence of malignancy Last DEXA- 2024. Will request records Last colonoscopy - 01/2024 w/ 3 year follow up advised. Multiple polyps: sessile serrated lesion negative for cytologic dysplasia, hyperplaastic mucosal polyp, colonic mucosa with mild surface hyperplastic changes. Dr. Garber ROS: General: No fevers, malaise, unintentional weight loss HEENT: see hpi Cardiovascular: No chest pain, palpitations, or leg edema Respiratory: No shortness of breath, wheezing, cough MSK: No myalgia, back pain. see hpi Neuro: No headaches, weakness, paresthesias Skin: No rashes or lesions EXAM: Constitutional - Awake and Alert, No apparent distress Cardiovascular - S1S2, RRR, No edema Respiratory - Normal lung expansion, Normal respiratory effort, No respiratory distress, CTA bilaterally Skin - Warm/Dry Neurological - Alert & oriented x3 Psychological - Appropriate affect [facility] Medical History (Updated 07/07/24 @ 12:13 by ZOILA Armijo) Osteoporosis Bilateral hearing loss Family history of anesthesia complication Post-operative nausea and vomiting Hx of thyroid cancer HX: benign breast biopsy Hypothyroid Surgical History (Updated 07/06/24 @ 08:22 by Ivette Doty) Hx of right inguinal hernia repair Hx of appendectomy Hx of thyroidectomy H/O colonoscopy (~01/14/24) Social History Are you a primary home care chaplain to a significant other at home: No Do you presently have visiting nurse or other home services: No Patient Tobacco Use Status: Never used Tobacco Second Hand Smoke Exposure: No Questionnaire PHQ-9 Over the last 2 weeks, how often have you been bothered by any of the following problems? 1. Little interest or pleasure in doing things: not at all 2. Feeling down, depressed, or hopeless: not at all 3. Trouble falling or staying asleep, or sleeping too much: not at all 4. Feeling tired or having little energy: not at all 5. Poor appetite or overeating: not at all 6. Feeling bad about yourself - or that you are a failure or have let yourself or your family down: not at all 7. Trouble concentrating on things, such as reading the newspaper or watching television: not at all 8. Moving or speaking so slowly that other people could have noticed. Or the opposite - being so fidgety or restless that you have been moving around a lot more than usual: not at all 9. Thoughts that you would be better off or of hurting yourself in some way: not at all Total score: 0 Source: Developed by Drs. Omar Price, Heike Paul, Thompson Rhodes and colleagues, with an educational kaya from [employer]. Thrive Questionnaire I am a: Patient What is your living situation today?: I have a steady place to live Within the past 12 months, did the food you bought not last and you didn't have the money to get more?: Never true Within the past 12 months, did you worry whether your food would run out before you got money to buy more?: Never true Do you have trouble paying for medicines?: No Do you have trouble getting transportation to medical appointments?: No Do you have trouble paying your heating and electricity bill?: No Do you have trouble taking care of your child, family member or friend?: No Do you have trouble with day-to-day activities such as bathing, preparing meals, shopping, managing finances, etc.?: No Are you currently unemployed and looking for a job?: No Are you interested in more education?: No Please select the resources that you would like help with: None THRIVE Score: 0 MAURI-7 AMB Questionnaire MAURI-7 Date MAURI - 7 assessed: 07/07/24 Feeling nervous, anxious, or on edge: 0 = Not at all Not being able to stop or control worryin = Not at all Worrying too much about different things: 0 = Not at all Trouble relaxin = Not at all Being so restless that it is hard to sit still: 0 = Not at all Becoming easily annoyed or irritable: 0 = Not at all Feeling afraid as if something awful might happen: 0 = Not at all Total MAURI-7 score (0-4 normal; 5-9 mild; 10-14 moderate; 15-21 severe): 0 Source: Developed by Drs. Omar Price, Heike Paul, Thompson Rhodes and colleagues, with an educational kaya from [employer]. Physical exam (Primary Care) Vital Signs: Last Vital Signs Temp 97.3 F 07/07/24 11:10 Pulse 59 07/07/24 11:10 BP 122/68 07/07/24 11:10 Pulse Ox 96 07/07/24 11:10 Oxygen Delivery Method Room Air 07/07/24 11:10 BMI result Body Mass Index 20.0 Tobacco/Smoking Status: Tobacco use Status Patient Tobacco Use Status Never used Tobacco 07/07/24 11:09 PHQ-9: PHQ-9 Score PHQ-9: Total score 0 07/07/24 12:05 Coding Level of Care Code New Pt Level 4 (34483) Complex EM visit Add On G2211 Diagnoses Hypothyroid E03.9 Osteoporosis M81.0 Bilateral hearing loss H91.93 Assessment & Plan Assessment & Plan (1) Hypothyroid: Code(s): E03.9 - Hypothyroidism, unspecified Category: Medical Plan: Post-surgical with h/o thyroid cancer 2014. Previously euthyroid with TSH 0.52. Will repeat today. Continue levothyroxine 88mcg daily. (2) Osteoporosis: Code(s): M81.0 - Age-related osteoporosis without current pathological fracture Category: Medical Plan: Follow up with endocrinology as scheduled. Recent DEXA showed progression to osteoporosis, records to be requested. Continue fosamax as prescribed by endocrinology. Currently no adverse side effects. Will check renal fx, Ca, vit D, alk phos today. Continue vit D and estradiol. Weight bearing exercise (3) Bilateral hearing loss: Code(s): H91.93 - Unspecified hearing loss, bilateral Category: Medical Plan: referral to audiology placed Plan Follow up for annual physical. Labs to be completed following visit. Continue following with endo and plastic duplicator and take medications as prescribed. Screening studies up todate. Orders: Orders Basic Metabolic Panel Today E03.9 - Hypothyroidism, unspecified, M81.0 - Age-related osteoporosis without current pathological fracture, Z13.220 - Encounter for screening for lipoid disorders Lipid Panel Today E03.9 - Hypothyroidism, unspecified, M81.0 - Age-related osteoporosis without current pathological fracture, Z13.220 - Encounter for screening for lipoid disorders Liver Panel Today E03.9 - Hypothyroidism, unspecified, M81.0 - Age-related osteoporosis without current pathological fracture, Z13.220 - Encounter for screening for lipoid disorders TSH reflex Free T4 Today E03.9 - Hypothyroidism, unspecified, M81.0 - Age-related osteoporosis without current pathological fracture, Z13.220 - Encounter for screening for lipoid disorders Vitamin D 25-OH Total Today E03.9 - Hypothyroidism, unspecified, M81.0 - Age-related osteoporosis without current pathological fracture, Z13.220 - Encounter for screening for lipoid disorders Complete Blood Count Auto Diff Today E03.9 - Hypothyroidism, unspecified, M81.0 - Age-related osteoporosis without current pathological fracture, Z13.220 - Encounter for screening for lipoid disorders Referrals Audiology Referral H91.93 - Unspecified hearing loss, bilateral
[2024-07-07 11:10] VITALS: BP 122/68; PULSE 59; TEMP 36.3; O2SAT 96
--- OUTSIDE RECORDS SUMMARY | 2024-07-07 12:03 | XMS_ITS | Patient Health Record ---
Author Organization [facility] Address [address] [place] [address] Care Team Providers Care Health Science Writer Name Role Phone Chinedu Webster MD Primary Care Provider Omar Fine [phone] Allergies Allergen (clinical drug ingredient) Drug/Non Drug Allergy documented on EMR Reaction Allergy Type Onset Date Status narcotics (uncoded) nausea/ vomiting Allergy Active Results Component Value Reference Range Notes Pathology Reviewed date:01/19/2024 09:10:43 AM Interpretation: Performing Lab:[facility], [address] [place] [address] Notes/Report: Name: Amarilis Busch Age/Sex: 68/F : 1955 Unit#: [id number] Attend Dr: Omar Garber MD Re01/14/24 Status : [facility] Location: [facility] [place] Disch: SPEC : [id number] RECD : 01/14/24-1143 STATUS: ROBERTO QURESHI NUM: [id number] LOR: 01/14/24-[address] [facility] [address]: Omar Garber MD ENTERED: 01/14/24-11 50 SP TYPE: Surgical OTHR DR: Chinedu Webster MD ORDERED: HE Stain/3, Gross Micro L4 Diagnosis Colon, 30 cm, polypectomies: - Sessile serrated l esion/polyp; negative for cytologic dysplasia. - Hyperplastic mucosal polyp. - Colonic mucosa wit h mild surface hyperplastic changes. Clinical History Pre-Op Dx: Screening Post-Op Dx: Polyps, diverticulosis, hemorrhoids Microscopic Description Microscopic sections reviewed. Material Received Polyps at 30 cm Gross Description Received in formalin labeled ?polyps at 30 cm? are 4 fragments of nieves-white soft tissue measuring 0.3-0.4 cm in greatest dimension which are wrapped in lens paper and entirely submitted for micros copic examination, 4 pieces in cassette [facility] Copies To: Chinedu Webster MD Primary Care [address] [place], [place] [phone] Omar Garber MD [facility] [address] [place] [address] CONTINUED ON NEXT PAGE Name: Amarilis Busch Age/Sex: 68/F : 1955 Unit#: [id number] Attend Dr: Omar Garber MD Re01/14/24 Status : [facility] Location: [facility] [place] Disch: SPEC : [id number] RECD : 01/14/24 STATUS: ROBERTO QURESHI NUM: [id number] LOR: 01/14/24-[address] [facility] [address]: Omar Garber MD ENTERED: 01/14/24-11 50 SP TYPE: Surgical OTHR DR: Chinedu Webster MD ORDERED: NACHO Blackwood/3Ashley L4 Signed (si gnature on file) Chico Chandler MD 01/15/24 1713 END OF REPORT Reason For Referral No Information Medications Medication SIG (Take, Route, Frequency, Duration) Notes Start Date End Date Status Estradiol 0.1 MG/GM _insert 1 GRAM VAGIN ALLY EVERY NIGHT FOR 2 WEEKS THEN _insert 1 GRAM VAGINALLY 2 TIMES EVERY WEEK THEREAFTER Diagnosis Unavailable Vaginal for 90 Active Levothyroxine Sodium 88 MCG 1 capsule Or ally Once a day Active Immunizations Vaccine Route Administration Date Status Comme nts Influenza Unknown 10/11/2020 Administered Social History Alcohol Screen Question Answer Notes Did you have a drink containing alcohol in the p ast year? No Points 0 Interpretation Negative Section Notes: Nonsmoker; no sig alcohol Nonsmoker; no sig alcohol Nonsmoker; no sig alcohol Problems Problem Type SNOMED Code ICD Code Onset Dates Problem Status W/U Status Risk Notes Problem Colon cancer screening (115078951) Colon cancer screening (Z12.11) Active confirmed Problem 140249989 Encounter for screening for malignant neoplasm of colon (Z12.11) Active confirmed Problem Diverticular disease of colon (022476986) Diverticulosis of large intestine without perforation or abscess without bleeding (K57.30) Active confirmed Problem 657121056541616 Preprocedural examination (Z01.818) Active confirmed Problem 06246160 Change in bowel function (R19.4) Active confirmed Problem Diverticulosis of colon (885457653) Diverticulosis of colon (K57.30) Active confirmed Problem Sessile serrated polyp of colon (9687627955) Sessile serrated polyp of colon (D12.6) Active confirmed Vital Signs Blood pressure diastolic 00 mm Hg 10/07/2023 Height 62 in 10/07/2023 Blood pressure systolic 00 mm Hg 10/07/2023 Weight 105 lbs 10/07/2023 BMI 19.20 kg/m2 10/07/2023 Encounters Encounter Location Date Provider Diagnosis [facility] Outpatient [address] [place] [id number] 01/14/2024 Omar Garber Colon cancer screeni ng Z12.11 ; Colon polyps K63.5 ; Diverticulosis of large intestine without perforation or abscess without bleeding K57.30 and Other hemorrhoids K64.8 [facility] [address] [place] [address] 10/07/2023 Omar Garber Sessile serrated artie yp of colon D12.6 ; Preprocedural examination Z01.818 and Colon cancer screening Z12.11 Assessments Encounter Date Diagnosis (ICD Code) Assessment Notes Treatment Notes Treatment Clinical Notes Section Notes 01/14/2024 Colon cancer screening (ICD-10 - Z12.11) 01/14/2024 Colon polyps (ICD-10 - K63.5) 10/07/2023 Preprocedural examination (ICD-10 - Z01.818) Overall,Kim appears well. Given the findings on her colonoscopy in February of 2021 in regard to sessile serrated polyps, I did recommend a followup colonoscopy later this year for followup as that will be almost 3 years since the exam in February of 2021. We did review the rationale for this in regard to colon cancer prevention. Full consent was obtained from her for this, including risks of bleeding and perforation. The procedure will be done with monitored anesthesia care. Kim was comfortable with this plan. Thank you again for allowing me to participate in Kim's care. I shall continue to keep you advised of her progress. 10/07/2023 Sessile serrated polyp of colon (ICD-10 - D12.6) Overall,Kim appears well. Given the findings on her colonoscopy in February of 2021 in regard to sessile serrated polyps, I did recommend a followup colonoscopy later this year for followup as that will be almost 3 years since the exam in February of 2021. We did review the rationale for this in regard to colon cancer prevention. Full consent was obtained from her for this, including risks of bleeding and perforation. The procedure will be done with monitored anesthesia care. Kim was comfortable with this plan. Thank you again for allowing me to participate in Kim's care. I shall continue to keep you advised of her progress. 01/14/2024 Diverticulosis of large intestine without perforation or abscess without bleeding (ICD-10 - K57.30) 10/07/2023 Colon cancer screening (ICD-10 - Z12.11) Overall,Kim appears well. Given the findings on her colonoscopy in February of 2021 in regard to sessile serrated polyps, I did recommend a followup colonoscopy later this year for followup as that will be almost 3 years since the exam in February of 2021. We did review the rationale for this in regard to colon cancer prevention. Full consent was obtained from her for this, including risks of bleeding and perforation. The procedure will be done with monitored anesthesia care. Kim was comfortable with this plan. Thank you again for allowing me to participate in Kim's care. I shall continue to keep you advised of her progress. 01/14/2024 Other hemorrhoids (ICD-10 - K64.8) Plan Of Treatment Pending Test Test Name Order Date CBC w DIFF 05/12/2015 CELIAC PANEL #10 05/12/2015 Future Test Test Name Order Date COLONOSCOPY 01/19/2021 COLONOSCOPY 10/07/2023 Insurance Providers Payer Name Payer Address Payer Phone Subscriber Number Group Number Insured Name Patient Relationship to Insured Coverage Start Date Coverage End Date MEDICARE OF [place] [address] [place] [id number] [phone] [id number] NIGEL BUSCH Self - patient is the insured [facility] [address] [place] [address] [id number] NIGEL BUSCH Self - patient is the insured Medical (General) History Medical History History ICD Code 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 Cee revealed a hyperplastic polyp that was removed; a colonoscopy in December [address] Cee was negative Negative laboratories for celiac disease in 2016. Screening colonoscopy in Feb revealed 2 small sessile serrated polyps that were removed Osteoporosis Surgical History Surgery Date(Month/Year) Thyroidectomy for papillary carcinoma--she reports that this was well-differentiated and lymph nodes were negative--she did not have any adjuvant treatment 2014 Appendectomy 1961 Inguinal hernia repair-right 1993 Bilateral breast biopsies-benign 1981,19 89
== END 2024-07-07 11:33 | disposition home or self-care (01) ==
LOC: HO.HMCHD 10:59
PROVIDERS: PCP Internal Medicine; Visit Provider Physician Assistant
DX: E03.9 Hypothyroidism, unspecified (principal); M81.0 Age-related osteoporosis without current pathological fracture; H91.93 Unspecified hearing loss, bilateral

== ENCOUNTER → 2024-07-07 10:58 | Outpatient (BNVA) | payer MEDICARE, OTHER, SELFPAY | PROVIDERS: PCP Internal Medicine; Visit Provider Physician Assistant | DX: Z13.89 Encounter for screening for other disorder (principal) | CPT/HCPCS: 99202 ==

== ENCOUNTER 2024-07-07 11:46 | Outpatient (REF) | payer MEDICARE, OTHER, SELFPAY ==
[2024-07-07 13:05] LABS: MANUAL DIFF FLAG NO
[2024-07-07 13:10] LABS: Basophils Absolute Auto 0.1 X10*3/uL (0.0-0.2); Basophils Percent Auto 0.6 % (0-2); Eosinophils Absolute Auto 0.1 X10*3/uL (0.0-0.4); Hematocrit 40.4 % (37.0-47.0); Hemoglobin 13.5 g/dl (12.0-16.0); Imm Gran Abs Auto 0.02 X10*3/uL (0.00-0.03); Imm Gran Pct Auto 0.3 % (0.0-0.4); Lymphocytes Percent Auto 25.3 % (20-40); Mean Corpuscular HGB Conc 33.4 g/dl (31.0-35.0); Mean Corpuscular Hemoglobin 31.2 pg (27.0-33.0); Mean Corpuscular Volume 93.3 fL (80.0-98.0); Mean Platelet Volume 10.5 fL (9.4-12.3); Monocytes Absolute Auto 0.6 X10*3/uL (0.1-1.2); Monocytes Percent Auto 7.6 % (2-11); Neutrophils Absolute Auto 5.1 x10*3/uL (2.0-8.3); Neutrophils Percent Auto 65.2 % (45-73); Platelet Count 226 X10*3/uL (160-400); Red Blood Count 4.33 X10*6/uL (4.20-5.50); Red Cell Distribution Width 12.5 % (11.0-16.0); White Blood Count 7.9 X10*3/uL (4.8-10.8)
[2024-07-07 13:30] LABS: Alanine Aminotransferase 25 U/L (0-31); Albumin Level 4.7 g/dL (3.5-5.0); Alkaline Phosphatase 58 U/L (39-117); Anion Gap 11 (12-20); Aspartate Amino Transferase 37 U/L (5-31); Bilirubin Direct 0.2 mg/dL (0.0-0.5); Bilirubin Total 0.5 mg/dL (0.0-1.0); Blood Urea Nitrogen 18 mg/dL (9-16); Calcium 9.7 mg/dL (8.4-10.2); Carbon Dioxide 31 mmol/L (22-29); Chloride 103 mmol/L (96-108); Cholesterol 221 mg/dL (<200); Estimated Glomerular Filt Rate > 60; Glucose Random 93 mg/dL (60-115); HDL Cholesterol 87 mg/dL (>40); LDL Cholesterol Calculated 117 mg/dL (<100); Potassium 4.5 mmol/L (3.3-5.1); Sodium 140 mmol/L (135-145); Total Protein 7.7 g/dL (6.5-8.0); Triglycerides 88 mg/dL (<150)
[2024-07-07 13:47] LABS: TSH reflex Free T4 0.15 uIU/mL (0.32-4.0); Vitamin D 25-OH Total 66.8 ng/mL (>30)
== END 2024-07-07 11:47 | disposition home or self-care (01) ==
LOC: HO.10HDL 11:46
PROVIDERS: Visit Provider Physician Assistant
DX: M81.0 Age-related osteoporosis without current pathological fracture (principal); E03.9 Hypothyroidism, unspecified; H91.93 Unspecified hearing loss, bilateral; Z13.220 Encounter for screening for lipoid disorders
CPT/HCPCS: 36415; 80048; 80061; 80076; 82306; 84439; 84443; 85025; 96127; 99202

== ENCOUNTER 2024-07-29 10:30 | Outpatient (REF) | payer MEDICARE, OTHER, SELFPAY ==
--- OUTSIDE RECORDS SUMMARY | 2024-07-29 11:57 | XMS_ITS | Patient Health Record ---
Author Organization [facility] Address [address] [place] [address] Care Team Providers Care Blender/Braze Applicator Name Role Phone Chinedu Webster MD Primary Care Provider Omar Fine [phone] Allergies Allergen (clinical drug ingredient) Drug/Non Drug Allergy documented on EMR Reaction Allergy Type Onset Date Status narcotics (uncoded) nausea/ vomiting Allergy Active Results Component Value Reference Range Notes Pathology Reviewed date:01/19/2024 09:10:43 AM Interpretation: Performing Lab:[facility], [address] [place] [phone] Notes/Report: Name: Amarilis Busch Age/Sex: 68/F : 1955 Unit#: [id number] Attend Dr: Omar Garber MD Re01/14/24 Status : [facility] Location: [facility] Disch: SPEC : [id number] RECD : 01/14/24-1143 STATUS: ROBERTO QURESHI NUM: [id number] LOR: 01/14/24-[address] [facility] [address]: Omar Garber MD ENTERED: 01/14/24-11 [...] copic examination, 4 pieces in cassette [facility] Copies To: Chinedu Webster MD Primary Care [address] [place], [place] [id number] Omar Garber MD [facility] [address] [place] [address] CONTINUED ON NEXT PAGE Name: Amarilis Busch Age/Sex: 68/F : 1955 Unit#: [id number] Attend Dr: Omar Garber MD Re01/14/24 Status : [facility] Location: [facility] Disch: SPEC : [id number] RECD : 01/14/24 STATUS: ROBERTO QURESHI NUM: [id number] LOR: 01/14/24-[address] [facility] [address]: Omar Garber MD ENTERED: 01/14/24-11 [...] Status Risk Notes Problem Colon cancer screening (991687761) Colon cancer screening (Z12.11) Active confirmed Problem 229959378 Encounter for screening for malignant neoplasm of colon (Z12.11) Active confirmed Problem Diverticular disease of colon (937431749) Diverticulosis of large intestine without perforation or abscess without bleeding (K57.30) Active confirmed Problem 579637602158559 Preprocedural examination (Z01.818) Active confirmed Problem 72827161 Change in bowel function (R19.4) Active confirmed Problem Diverticulosis of colon (588501311) Diverticulosis of colon (K57.30) Active confirmed Problem Sessile serrated polyp of colon (9013715282) Sessile serrated polyp of colon (D12.6) Active confirmed Vital Signs Blood pressure diastolic 00 mm Hg 10/07/2023 Height 62 in 10/07/2023 Blood pressure systolic 00 mm Hg 10/07/2023 Weight 105 lbs 10/07/2023 BMI 19.20 kg/m2 10/07/2023 Encounters Encounter Location Date Provider Diagnosis [facility] Outpatient [address] [place] [id number] 01/14/2024 Omar Garber Colon cancer screeni ng Z12.11 ; Colon polyps K63.5 ; Diverticulosis of large intestine without perforation or abscess without bleeding K57.30 and Other hemorrhoids K64.[address] 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 Dr[address] Cee revealed a hyperplastic [...]
== END 2024-07-29 10:31 | disposition home or self-care (01) ==
LOC: HO.SH 10:30
PROVIDERS: Visit Provider Physician Assistant
DX: Z01.118 Encounter for examination of ears and hearing with other abnormal findings (principal); H93.293 Other abnormal auditory perceptions, bilateral
CPT/HCPCS: 92557; 92700

== ENCOUNTER 2024-09-16 11:12 | Outpatient (REF) | payer MEDICARE, OTHER, SELFPAY ==
--- OUTSIDE RECORDS SUMMARY | 2024-09-16 11:51 | XMS_ITS | Patient Health Record ---
Author Organization [facility] Address [address] [place] [address] Care Team Providers Care Laborer Chemical Processing Name Role Phone Darin (RETIRED) Chinedu WOLFE Primary Care Provide r Omar Pierce [phone] Allergies Allergen (clinical drug ingredient) Drug/Non Drug Allergy documented on EMR Reaction Allergy Type Onset Date Status narcotics (uncoded) nausea/ vomiting Allergy Active Results Component Value Reference Range Notes Pathology Reviewed date:01/19/2024 09:10:43 AM Interpretation: Performing Lab:[facility], [address] [place] [address] [place] [address] Notes/Report: Reason For Referral No Information Medications Medication [...] Status Risk Notes Problem Colon cancer screening (420571203) Colon cancer screening (Z12.11) Active confirmed Problem 446690386 Encounter for screening for malignant neoplasm of colon (Z12.11) Active confirmed Problem Diverticulosis o f large intestine without perforation or abscess without bleeding (K57.30) Active confirmed Problem 356871689517753 Preprocedural examination (Z01.818) Active confirmed Problem 64108172 Change in bowel function (R19.4) Active confirmed Problem Diverticulosis of colon (668142632) Diverticulosis of colon (K57.30) Active confirmed Problem Sessile serrated polyp of colon (5419660357) Sessile serrated polyp of colon (D12.6) Active confirmed Vital Signs Blood pressure diastolic 00 mm Hg 10/07/2023 Height 62 in 10/07/2023 Blood pressure systolic 00 mm Hg 10/07/2023 Weight 105 lbs 10/07/2023 BMI 19.20 kg/m2 10/07/2023 Encounters Encounter Location Date Provider Diagnosis [facility] Outpatient [address] [place], [place] [phone] 01/14/2024 Omar Garber Colon cancer screeni ng Z12.11 ; Colon polyps K63.5 ; Diverticulosis of large intestine without perforation or abscess without bleeding K57.30 and Other hemorrhoids K64.8 [facility] [address] [place] [address] 10/07/2023 Omar Garber Sessile serrated artie yp [...] End Date MED[place]ARE OF [place] [address] [place] [address] [id number] NIGEL MUHAMMAD Self - patient is the insured FOR [employer] [address] [place] [address] [id number] NIGEL MUHAMMAD Self - patient is the insured Medical (General) History Medical History History ICD Code 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
== END 2024-09-16 11:13 | disposition home or self-care (01) ==
LOC: HO.10HDL 11:12
PROVIDERS: Visit Provider Internal Medicine
DX: E03.9 Hypothyroidism, unspecified (principal); Z85.850 Personal history of malignant neoplasm of thyroid
CPT/HCPCS: 36415; 84443

== ENCOUNTER 2024-11-17 07:18 | Outpatient (REF) | payer MEDICARE, OTHER, SELFPAY ==
--- OUTSIDE RECORDS SUMMARY | 2024-01-14 05:30 | XMS_ITS ---
Author Organization [facility] Address [address] [place] [address] Care Team Providers Care Scheduling Administrator Name Role Phone Darin (RETIRED) Chinedu WOLFE Primary Care Provide Omar Archer [phone] REASON FOR VISIT screening,sessile serrated polyp colon Problems Problem Type SNOMED Code ICD Code Onset Dates Problem Status W/U Status Risk Notes Problem Diverticular disease of colon (661265201) Diverticulosis of large intestine without perforation or abscess without bleeding (K57.30) Active confirmed Encounters Encounter Location Date Provider Diagnosis [facility] [place] [address] [facility] [place] [id number] 01/14/2024 Omar Garber Colon cancer scree silvia Z12.11 ; Colon polyps K63.5 ; Diverticulosis of large intestine without perforation or abscess without bleeding K57.30 and Other hemorrhoids K64.8 Assessments Encounter Date Diagnosis (ICD Code) Assessment Notes Treatment Notes Treatment Clinical Notes Section Notes 01/14/2024 Colon cancer screening (ICD-10 - Z12.11) 01/14/2024 Colon polyps (ICD-10 - K63.5) 01/14/2024 Diverticulosis of large intestine without perforation or abscess without bleeding (ICD-10 - K57.30) 01/14/2024 Other hemorrhoids (ICD-10 - K64.8) Plan Of Treatment No Information Progress Notes * NIGEL MUHAMMAD MDDOB:[birth year] (69 yo F)Acc No.[id number]:01/14/2024 COLON WITH MAC Patient: NIGEL OSBORNE MD Provider: Wesley Garber MD :1955 A ge:68 Y S ex:Female Date:01/14/2024 Address:[address] [place] [address] , [place], [id number] Pcp:Chinedu Webster (RETIRED )MD Subjective: * Chief Complaints: * 1 . Screening,sessile serrated polyp colon. * Medical History: Objective: * Vitals: Assessment: * Assessment: 1. C olon cancer screening - Z12.11 (Primary) 2 . C olon polyps - K63.5? 3. D iverticulosis of large intestine without perforation or abscess without bleeding - K57.30 4 . O ther hemorrhoids - K64.8 Plan: * Treatment: * Procedure Codes: 4 5380 COLONOSCOPY AND BIOPSY, Modifiers: PT , 0529F INTRVL 3+YRS PTS CLNSCP DOCD, 0528F RCMND FLW-UP 10 YRS DOCD, Modifiers: 1P * * The named appointment provid er may or may not be the originator of this progress note, and it is not deemed complete until electronically signed by the appointment provider. Sign off status: Pending * Provider: Wesley Garber MD Date: 1 03/16/2023 Generated for Ren smith/Loni/eTransmitting on: 1 07:23 AM EDT
--- NOTE | ~2024-11-17 | MM_ITS ---
EXAMINATION: DXA BONE DENSITY AXIAL HISTORY: OSTEOPOROSIS TECHNIQUE: [employer] Dual energy absorptiometry (DEXA) of the lumbar spine, total left hip, and femoral neck was performed. COMPARISON: Comparison is made with the prior examination dated 10/30/2022. FINDINGS: The bone mineral density of the lumbar spine is 0.956 g/cm2, corresponding to a T-score of -1.9, and a Z-score of 0.3. This is indicative of osteopenia. This represents a BMD change of 16.7% compared to the prior exam. This is statistically significant. The bone mineral density of the left total hip is 0.753 g/cm2, corresponding to a T-score of -2.0, and a Z-score of -0.3. This is indicative of osteopenia. This represents a BMD change of 37.4% compared to the prior exam. This is statistically significant. The bone mineral density of the left femoral neck is 0.713 g/cm2, corresponding to a T-score of -2.3, and a Z-score of -0.4. This is indicative of osteopenia. This represents a BMD change of 32.3% compared to the prior exam. FRACTURE RISK: The FRAX index suggests a ten year probability of major osteoporotic fracture of 11.6%, and of hip fracture 2.6%. MM/XR DEXA axial skeleton IMPRESSION: Based on bone mineral density, and according to World Health Organization (WHO) criteria, the diagnosis is consistent with osteopenia. Statistically, 68% of repeat scans fall within 1 SD (+/- 0.010 g/cm2 for AP spine L1-L4) and 1 SD (+/- 0.012 g/cm2 for femur total) FRAX is a trademark of the [employer]'s [employer] Met[employer], a World Health Organization (WHO) Collaborating Center. Electronically signed by: Omar Romero MD 11/17/2024 08:09 AM EDT
--- NOTE | ~2024-11-17 | MM_ITS ---
EXAMINATION: MM SCREENING DIGITAL BREAST TOMOSYNTHESIS, BILATERAL CLINICAL INFORMATION: Screening. Asymptomatic. COMPARISON: Mammography: Comparison is made with available priors TECHNIQUE: Digital breast mammography with tomosynthesis is performed in both the craniocaudal and mediolateral oblique views along with computer-aided detection (CAD). FINDINGS: The breasts are extremely dense, which lowers the sensitivity of mammography. Bilateral post surgical changes are stable. Grouped calcifications lower inner right breast posterior depth stable dating back to 2018. There are no significant masses, abnormal calcifications, or other abnormalities. MM/MM tomosynthesis screening BI IMPRESSION: No mammographic evidence of malignancy. ASSESSMENT: BI-RADS Category 2: Benign RECOMMENDATION: Routine annual mammography screening. 1 year F/U This examination should not preclude the clinical evaluation of a suspicious palpable abnormality. This patient's information was entered into a reminder system with a target due date for their next mammogram. Electronically signed by: Shaneka Smith DO 11/23/2024 10:10 AM EDT
--- OUTSIDE RECORDS SUMMARY | 2024-11-17 07:23 | XMS_ITS | Patient Health Record ---
Author Organization [facility] Address [address] [place] [address] Care Team Providers Care Fried Cake Maker Name Role Phone Darin (RETIRED) Chinedu WOLFE Primary Care Provide r Omar Pierce [phone] Allergies Allergen (clinical drug ingredient) Drug/Non Drug Allergy documented on EMR Reaction Allergy Type Onset Date Status narcotics (uncoded) nausea/ vomiting Allergy Active Results Component Value Reference Range Notes Pathology Reviewed date:01/19/2024 09:10:43 AM Interpretation: Performing Lab:[facility], [address] [place] [address] [place] [address] Notes/Report: Reason For Referral No Information Medications [...] Status Risk Notes Problem Colon cancer screening (439384966) Colon cancer screening (Z12.11) Active confirmed Problem 203068093 Encounter for screening for malignant neoplasm of colon (Z12.11) Active confirmed Problem Diverticular disease of colon (940002625) Diverticulosis of large intestine without perforation or abscess without bleeding (K57.30) Active confirmed Problem 977187102810141 Preprocedural examination (Z01.818) Active confirmed Problem 24445514 Change in bowel function (R19.4) Active confirmed Problem Diverticulosis of colon (551300420) Diverticulosis of colon (K57.30) Active confirmed Problem Sessile serrated polyp of colon (7730689302) Sessile serrated polyp of colon (D12.6) Active confirmed Encounters Encounter Location Date Provider Diagnosis [facility] Outpatient [address] [place] [id number] 01/14/2024 Omar Garber Colon cancer serafine silvia Z12.11 ; Colon polyps K63.5 ; [...] Date MEDICARE OF [place] [address] [place] [address] [id number] NIGEL MUHAMMAD Self - patient is the insured [employer] [address] [place] [address] [id number] NIGEL MUHAMMAD Self - patient is the insured Medical (General) History Medical History History ICD Code 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 Cee was negative Negative laboratories for celiac disease in 2015. Screening colonoscopy in Feb revealed 2 small sessile serrated polyps that were removed Osteoporosis Surgical History Surgery Date(Month/Year) Thyroidectomy for papillary carcinoma--she reports that this was well-differentiated and lymph nodes were negative--she did not have any adjuvant treatment 2014 Appendectomy 1961 Inguinal hernia repair-right 1994 Bilateral breast biopsies-benign 1981,
--- OUTSIDE RECORDS SUMMARY | 2024-11-17 07:23 | XMS_ITS | Clinical Summary ---
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 Active estradioL (ESTRACE) 0.01 % (0.1 mg/gram) vaginal cream Active calcium citrate-vitamin D3 315 mg-6.25 mcg (250 unit) per tablet Take 1 tablet by mouth daily. Active alendronate (FOSAMAX) 35 MG tablet Take 1 tablet (35 mg total) by mouth every 7 days. Take in the morning with a full glass of water, on an empty stomach, and do not take anything else by mouth or lie down for the next 30 min. 90 tablet 2 02/16/2024 Active Active Problems Problem Noted Date Diagnosed Date History of thyroid cancer 02/14/2024 Assessment & Plan (02/14/2024 9:59 PM EST): Patient is status post total thyroidectomy on 04/11/[address] 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 No radioactive iodine ablation. Was on suppressive doses of LT4 for 1 to 2 years after surgery. Reports undetectable thyroglobulin and thyroglobulin antibody last tested around 2016. TSH has been low normal at least since 06/2020 on 88 mcg levothyroxine daily. No palpable abnormality on the neck today. -Added thyroglobulin and thyroglobulin antibody with TSH to next labs Vitamin D deficiency, unspecified 02/14/2024 Assessment & Plan (02/14/2024 9:57 PM EST): History of low D normalized on supplement. 25 OHD level has been normal since 2019. -Continue 500 IU D3 from calcium supplement. 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 She reports history of osteopenia which progressed to osteoporosis on last DEXA dated 10/30/2022 with left femoral neck T-score of -3.6 and lumbar T-score of -3.0. She had a significant, 29.2% decline at the left total hip and 12.7% decline at the lumbar spine since 06/2018. No history of fragility fractures. Risk factors include small frame, menopause at age 52 without HRT. She was on tamoxifen between 1998 and 2003 [age 43-46] for breast cancer prevention. She was also on suppressive doses of levothyroxine for 1 to 2 years to prevent thyroid cancer recurrence after 2015 [age [age]]. She has a family history of osteoporosis in her mother without fractures and osteopenia in her sisters. No history of kidney stones but mother had kidney stones. Reviewed normal bone physiology across the lifespan. Reviewed role of adequate calcium, vitamin D, weight-bearing exercise & avoidance of falls along with pharmacologic rx with indications, risks & benefits. Directed to written literature from [employer] and the bone health and osteoporosis foundation. We discussed medication options, including anti-resorptives, i.e. bisphosphonates, either oral or IV; denosumab, and teriparetide. We discussed the potential risk of ONJ & AFF with the anti-resorptives & concept of a drug holiday after a period of time with the bisphosphonates to help limit the risk of side effects. Patient reports slightly elevated calcium level once and normal PTH level tested by Dr. Gutierrez before total thyroidectomy. One of the parathyroids was reimplanted at the time of total thyroidectomy. -Will do secondary workup including screening for hyperparathyroidism and renal calcium leak. -Add some resistance exercises. Patient was interested in consulting physical therapist on this, referral sent -Aim for 1200 mg of calcium daily combined from food and supplement. -Currently getting 500 IU D3 from her calcium supplement. Vitamin D level has been normal since 2019. Monitor l -Repeat DEXA after 10/30/2022 Social History Tobacco Use Types Packs/Day Years Used Date Smoking Tobacco: Never Smokeless Tobacco: Never Tobacco Cessation:Counseling Given: Not Answered Alcohol Use Standard Drinks/Week Comments Yes 1 (1 standard drink = 0.6 oz pur e alcohol) Education Answer Date Recorded Are you interested in more education? Not on anthony e 09/04/2023 Are you concerned about learning? Not on file 09/04/2023 No 09/04/2023 No 09/04/2023 Digital Access Answer Date Recorded No 09/04/2023 No 09/04/2023 Reliable internet access at home? Not on file 09/04/2023 Device with a working camera? Not on file Comments Unknown Sex and Gender Information Value Date Recorded Sex Assigned at Not on file Legal Sex Female 11:15 AM EDT Gender Identity Not on file Sexual Orientation Not on file Last Filed Vital Signs Vital Sign Reading Time Taken Comments Blood Pressure 120/70 01/21/2024 2:06 PM EST Pulse 60 01/21/2024 2:06 PM EST Temperature - - Respiratory Rate - - Oxygen Saturation 99% 01/21/2024 2:06 PM EST Inhaled Oxygen Concentration - - Weight 48.1 kg (106 lb) 01/21/2024 2:06 PM EST Height 154.9 cm (5' 1 ) 01/21/2024 2:06 PM EST Body Mass Index 20.03 01/21/2024 2:06 PM EST Plan of Treatment Upcoming Encounters Date Type Department Care Team (Late st Contact Info) Description 12/01/2024 8:20 AM EDT Office Visit [facility] [address] [place] [address] [place] [address] Geovanna Mahan MD [address] [place] [id number] [email or web address] Health Maintenance Due Date Last Done Comments Adult Td,Tdap Booster 1957 LIPID PANEL 1957 DEPRESSION SCREENING 1969 HEPATITIS C SCREENING 09/02/1975 SMOKING STATUS SCREENING (On ce After 26 Yrs) 09/02/1983 MAMMOGRAM 1997 COLOGUARD 2002 COLONOSCOPY 2002 COLORECTAL CANCER SCREENING 2002 FIT TEST 2002 FOBT 2002 SIGMOIDOSCOPY 2002 VIRTUAL COLONOSCOPY 2002 PNEUMOCOCCAL VACCINES (50+ years) (1 of 1 - PCV) 09/02/2007 ZOSTER VACCINES (1 of 2) 09/02/2007 INFLUENZA VACCINE (#1) 2024 COVID-19 VACCINE (1 - 2024-2 6 season) 2024 TSH LEVEL 02/01/2025 02/02/2024, 01/21/2024 RSV VACCINE (1 - 1-dose 75+ series) 2032 OSTEOPOROSIS SCREENING INITI AL (ONE-TIME) Completed 01/21/2024 HEPATITIS A VACCINES Aged Out No long er eligible based on patient's age to complete this topic HIB VACCINES Aged Out No longer eligi ble based on patient's age to complete this topic MENINGOCOCCAL VACCINES (ACWY) Aged Out No longer eligible based on patient's age to complete this topic MENINGOCOCCAL VACCINES (B) Aged Out N o longer eligible based on patient's age to complete this topic Medical Devices Not on file Procedures Procedure Name Priority Date/Time Associated Diagnosis Comments TSH WITH REFLEX Routine 02/02/2024 7:53 AM EST Age-related osteoporosis without current pathological fracture BD DXA MONITORING Routine 01/21/2024 3:3 0 PM EST Age-related osteoporosis without current pathological fracture from Last 3 Months or Most Recently Relevant to Health Maintenance Results * TSH with reflex (02/02/2024 7:53 AM EST) TSH 0.52 0.27 - 4.20 uIU/mL [facility] Blood 02/02/2024 7:53 AM EST 02/02/2024 7:57 AM EST us Geovanna Mahan MD LAB BLOOD ORDERABLES Final Res ult [address] [address] from Last 3 Months or Most Recently Relevant to Health Maintenance Insurance MEDICARE PART A & B [employer] [facility] [place] [facility] [place] [address] [id number] MEDICARE PART A & B [employer] [facility] [facility] [place] [address] [phone] MEDICARE PART A & B 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 It is not the complete legal health record.[facility]
== END 2024-11-17 07:19 | disposition home or self-care (01) ==
LOC: HO.MAMMO 07:18
PROVIDERS: PCP Physician Assistant; Visit Provider Physician Assistant
DX: Z12.31 Encounter for screening mammogram for malignant neoplasm of breast (principal); M81.0 Age-related osteoporosis without current pathological fracture
CPT/HCPCS: 77063; 77067; 77080

== ENCOUNTER → 2024-11-17 08:15 | Outpatient (BNV) | payer MEDICARE, OTHER, SELFPAY | PROVIDERS: PCP Physician Assistant; Visit Provider Radiology Diagnostic Radiology | DX: E28.39 Other primary ovarian failure (principal) | CPT/HCPCS: 77080 ==